=== PATIENT | male | born 1985 | race Hispanic/Latino ===

== ENCOUNTER 2018-07-28 23:50 | Emergency (ER) | payer BC, OTHER ==
[2018-07-29] MEDS ORDERED: DEXAMETHASONE SOD PHOSPHATE 10MG/ML 1ML VIAL ONE (01:00)
[2018-07-29] MEDS ORDERED: GUAIFENESIN SUGAR-FREE 100 MG/5 ML UDCUP ONE (01:00)
[2018-07-29] MEDS ORDERED: BENZONATATE 100 MG CAPSULE PO ONE (01:00)
[2018-07-29] MEDS ORDERED: ALBUTEROL SULFATE 0.083% 2.5 MG/3 ML INH IH ONE (01:33)
== END 2018-07-29 03:03 | disposition home or self-care (01) ==
LOC: EDH 23:50
DX: J20.9 Acute bronchitis, unspecified (principal); J45.909 Unspecified asthma, uncomplicated
CPT/HCPCS: 94640; 96372; 99283; J1100

== ENCOUNTER 2020-02-06 18:03 | Emergency (ER) | payer BC, OTHER | END 2020-02-06 18:50 | disposition home or self-care (01) | LOC: EDH 18:03 | DX: N48.22 Cellulitis of corpus cavernosum and penis (principal) ==

== ENCOUNTER 2020-02-09 09:11 | Emergency (ER) | payer SELFPAY ==
[2020-02-09] MEDS ORDERED: CEFTRIAXONE SODIUM 500 MG VIAL ONE (10:10)
[2020-02-09] MEDS ORDERED: AZITHROMYCIN 250 MG TABLET PO ONE (10:11)
== END 2020-02-09 10:43 | disposition home or self-care (01) ==
LOC: EDH 09:11
DX: N48.22 Cellulitis of corpus cavernosum and penis (principal); N47.1 Phimosis
CPT/HCPCS: 96372; 99283; J0696